=== PATIENT | male | born 1940 | race Caucasian/White ===

== ENCOUNTER → 2020-06-10 | Outpatient (CLI) | payer OTHER, BC ==
[~2020-06-10] MED LIST: ALLOPURINOL 30300 M1 PO; ALTACE 1.25 M1.25 M1 PO; ASA81BEC PO; ASPIRIN EC81 M1 PO; ATENOLOL 50MG T50 M1 PO; ATORVASTATIN CA20 MG PO; EFFIENT10 MG PO; FISH OIL + D31 EACH PO; FISH OIL 1,2001 EAC4 PO; GARLIC1000 MG PO; GARLIC200 MG PO; IMDUR 30 MG TAB30 M1 PO; MULTI VITAMIN1 EACH PO; RAMIPRIL5 MG PO; ROSUVASTATIN CA20 MG PO; SAW PALMETTO450 MG PO; VITAMIN C1000 MG PO; VITAMIN E100 UNI2 PO
== END ==
LOC: LAB 10:28
PROVIDERS: ATTEND Ophthalmology
DX: Z01.812 Encounter for preprocedural laboratory examination (principal); Z20.822 Contact with and (suspected) exposure to COVID-19

== ENCOUNTER 2020-06-13 06:19 | Day surgery (SDC) | payer OTHER, BC ==
[~2020-06-13] VITALS: Ht 177.8 cm; Wt 102.1 kg
[2020-06-13 09:00] VITALS: BP 131/68
--- NOTE | 2020-06-17 06:16 | O ---
[facility] [place] [address] OPERATIVE REPORT Name: RAMESH HODGE Room #: DEP [facility]..#: [id number] Admission: 06/13/20 Attend Phys: Po Sy MD Discharge: 06/13/20 Date of : 40 Report #: [id number] THIS REPORT FOR: cc: Christos Pinto MD, Charles W. 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 PROCEDURE: Bilateral lower lid ectropion repair with bilateral transconjunctival lower lid and cheek lift. SURGEON: Po Sy MD. 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 ANESTHESIA: MAC. COMPLICATIONS: None. INDICATIONS FOR SURGERY: This pleasant 80-year-old gentleman has bilateral lower lid ectropion with bilateral lower lid retraction, inferior keratopathy and chemosis. He has previously undergone a lower lid ectropion repair that has largely been reversed likely due in part to his nocturnal posturing. He has been advised to not sleep on his stomach or bury his face in the pillow in hopes that the current procedure well last somewhat longer. Informed consent was obtained to include but not limited to the potential risk for loss of vision, bleeding, infection, failure to improve the problem and the potential need for further surgery or treatment. DESCRIPTION OF PROCEDURE: The patient was taken to the operating room where 2% Xylocaine with epinephrine mixed with equal parts 0.75% Marcaine with Wydase was administered to each lower lid lateral canthus infratemporal fossa and cheek. The patient was then prepped and draped in the usual sterile fashion. Attention was first turned to the left side where the left lateral canthus was then clamped with a Barnes clamp. A sharp canthotomy and cantholysis was then performed and hemostasis re-achieved. The redundant eyelid margin and the redundant tarsal plate were then amputated and hemostasis once again re-achieved. [facility] [address] [place] [address] OPERATIVE REPORT Name: RAMESH HODGE Room #: DEP [facility] M..#: [id number] Admission: 06/13/20 Attend Phys: Po Sy MD Discharge: 06/13/20 Date of : 40 Report #: [id number] Attention was then turned away from the ectropion repair and towards the transconjunctival lower lid and cheek lift. An incision was then made below the inferior border of the tarsal plate across the width of the lid. The dissection was then carried down into the premalar tissues. Hemostasis was re-achieved. This dissection was primarily accomplished sharply. The lower lid, cheek and tissues were then elevated and resuspended with interrupted mattress 5-0 chromic sutures. The lower lid and cheek lift having been completed, attention was then turned to completion of the ectropion repair. The lateral canthal tendon was then resuspended from the internal portion of the lateral orbital tubercle with interrupted 5-0 Prolene sutures. The subcutaneous structures and the skin were then closed with 6-0 plain gut sutures. Attention was then turned to the other side, where the same procedures were performed. The lower lid was resuspended well. The wounds were then cleaned and dressed with erythromycin ophthalmic ointment. The patient subsequently transported to the recovery area having tolerated the procedures well with no anesthetic or operative complications being noted. <ELECTRONICALLY SIGNED> By: Po Sy MD 06/17/20 0616 [id number] Po Sy MD /nt
== END 2020-06-13 08:15 | disposition home or self-care (01) ==
LOC: OR 06:19 → TBA 06:19 → OR 08:15
PROVIDERS: ATTEND Ophthalmology
DX: H02.102 Unspecified ectropion of right lower eyelid (principal); H02.105 Unspecified ectropion of left lower eyelid; H02.535 Eyelid retraction left lower eyelid; H02.532 Eyelid retraction right lower eyelid; I10 Essential (primary) hypertension; Z98.890 Other specified postprocedural states; Z79.899 Other long term (current) drug therapy; Z95.1 Presence of aortocoronary bypass graft; Z79.82 Long term (current) use of aspirin
CPT/HCPCS: 50010; 50101; 50386; 50398; 51636; 56527; 56528; 56531; 62110; 62850; 70005